=== PATIENT | male | born 1995 | race African-American/Black ===

== ENCOUNTER 2019-05-19 11:53 | Emergency (ER) | payer MEDICAID ==
[~2019-05-19] VITALS: Ht 165.1 cm; Wt 61.4 kg
[2019-05-19 11:58] VITALS: Ht 165.1 cm; Wt 61.4 kg
[2019-05-19] MEDS ORDERED: FLAGYL500 MG PO (12:33)
[2019-05-19 12:40] LABS: APPEARANCE CLEAR (CLEAR); COLOR STRAW (YELLOW)
[2019-05-19 12:41] LABS: BILIRUBIN NEGATIVE (NEGATIVE); GLUCOSE NEGATIVE (NEGATIVE); KETONE NEGATIVE (NEGATIVE); NITRITE NEGATIVE (NEGATIVE); PROTEIN NEGATIVE (NEGATIVE); UROBILINOGEN NORMAL (NORMAL)
[2019-05-19 12:52] VITALS: BP 143/84
[2019-05-20 22:08] LABS: CHLAMYDIA TRACHOMATIS, NAA Positive (Negative)
== END 2019-05-19 12:52 | disposition home or self-care (01) ==
LOC: D.ER 11:53
PROVIDERS: Family Medicine
DX: Z20.2 Contact with and (suspected) exposure to infections with a predominantly sexual mode of transmission (principal)

== ENCOUNTER 2020-08-25 04:06 | Emergency (ER) | payer MEDICAID ==
[~2020-08-25] VITALS: Ht 165.1 cm; Wt 59.1 kg
[~2020-08-25 04:06] MED LIST: FLAGYL500 MG PO
[2020-08-25 04:10] VITALS: Ht 165.1 cm; Wt 59.1 kg
[2020-08-25] MEDS ORDERED: BLEPH-105 ML RIGHT EYE (04:46)
[2020-08-25 04:59] VITALS: BP 157/99
== END 2020-08-25 04:58 | disposition home or self-care (01) ==
LOC: D.ER 04:06
DX: H10.9 Unspecified conjunctivitis (principal)